=== PATIENT | female | born 1985 | race Caucasian/White ===

== ENCOUNTER 2016-10-16 11:56 | Emergency (ER) | payer OTHER ==
[~2016-10-16] VITALS: Ht 160 cm; Wt 87.1 kg
[2016-10-16 12:00] VITALS: BP 119/87
--- NOTE | 2016-10-16 13:19 | NUR ---
Patient taken from ED lobby to XRAY by tech.
--- NOTE | 2016-10-16 14:31 | NUR ---
Patient ambulated to OF to be evaluated as fast track by Dr. Anguiano. RN evaluating patient.
--- NOTE | 2016-10-16 14:50 | NUR ---
Dr. Anguiano evaluating patient in OF as fast track.
[2016-10-16 15:10] VITALS: BP 119/87
== END 2016-10-16 15:08 | disposition home or self-care (01) ==
LOC: MED 11:56
DX: S63.501A Unspecified sprain of right wrist, initial encounter (principal); J45.909 Unspecified asthma, uncomplicated; Z88.5 Allergy status to narcotic agent; Z91.040 Latex allergy status; V19.9XXA Pedal cyclist (driver) (passenger) injured in unspecified traffic accident, initial encounter; Y93.I9 Activity, other involving external motion; Y92.488 Other paved roadways as the place of occurrence of the external cause; Y99.8 Other external cause status
CPT/HCPCS: 73110; 81002; 81025; 99284

== ENCOUNTER 2017-03-02 19:00 | Emergency (ER) | payer OTHER ==
[~2017-03-02] VITALS: Ht 162.6 cm; Wt 86.2 kg
[2017-03-02 19:14] VITALS: BP 146/91
--- NOTE | 2017-03-02 22:20 | NUR ---
Patient being evaluated by Dr. Buckley in overflow chair.
--- NOTE | 2017-03-02 22:20 | NUR ---
PT TAKEN TO BED OF
--- NOTE | 2017-03-02 22:23 | NUR ---
31 Y/O F W/C/O R MID ABD PAIN AND CHILLS X TUESDAY. PT DENIES ANY N/V BUT STATES SHE HAD DIARRHEA ON TUESDAY ONLY. NO OTHER S/S OF DISTRESS NOTED. ER MADE AWARE.
[2017-03-02] MEDS ORDERED: NACL 0.9% 1,000 ML IV SCH (22:24)
[2017-03-02 22:55] LABS: ANION GAP 11.3 (8-16); CARBON DIOXIDE 28.9 mmol/L (21-32); CREATININE 0.9 mg/dL (0.6-1.3); POTASSIUM 4.2 mmol/L (3.5-5.1)
[2017-03-02] MEDS ORDERED: KETOROLAC 30 MG/ML VIAL IVP ONE (22:55)
[2017-03-02 22:57] LABS: APPEARANCE,URINE SL CLOUDY (CLEAR); BILIRUBIN,URINE NEGATIVE (NEGATIVE); BLOOD, URINE NEGATIVE (NEGATIVE); COLOR,URINE YELLOW (YELLOW); LEUKOCYTE ESTERASE ,URINE NEGATIVE (NEGATIVE); NITRITE, URINE NEGATIVE (NEGATIVE); UGLUCOSE NEGATIVE (NEGATIVE)
[2017-03-02 22:57] LABS: BASOPHILS # (AUTO) 0.4 K/uL (0.00-0.22); BASOPHILS % (AUTO) 4.3 % (0.0-2.0); EOSINOPHILS # (AUTO) 0.2 K/uL (0-0.4); EOSINOPHILS % (AUTO) 1.9 % (0.0-4.0); HEMATOCRIT 40.2 % (36-48); HEMOGLOBIN 13.4 g/dL (12.0-16.0); LYMPHOCYTES # (AUTO) 2.6 K/uL (2.5-16.5); LYMPHOCYTES % (AUTO) 25.3 % (20.5-51.1); MEAN CORPUSCULAR HEMOGLOBIN 30 pg (27-31); MEAN CORPUSCULAR HGB CONC 33 g/dL (33-37); MEAN CORPUSCULAR VOLUME 90 fL (80-94); MONOCYTES # (AUTO) 0.8 K/uL (0.8-1.0); MONOCYTES % (AUTO) 7.4 % (1.7-9.3); NEUTROPHILS # (AUTO) 6.2 K/uL (1.8-7.7); NEUTROPHILS % (AUTO) 61.1 % (42.2-75.2); PLATELET COUNT (AUTO) 260 K/uL (140-450); RED BLOOD CELL COUNT(AUTO) 4.49 MIL/uL (4.20-5.40); RED CELL DISTRIBUTION WIDTH 12.6 % (11.6-13.7); WHITE BLOOD COUNT (AUTO) 10.2 K/uL (4.8-10.8)
[2017-03-02 23:03] LABS: ALBUMIN 4.1 g/dL (3.4-5.0); TOTAL BILIRUBIN 0.2 mg/dL (0.0-1.0)
[2017-03-02 23:09] LABS: RBC,URINE 0-5 (RARE) /HPF (0-5); WBC,URINE 0-5 (RARE) /HPF (0-5)
--- NOTE | 2017-03-02 23:23 | NUR ---
Ultrasound at bedside.
[2017-03-03 00:25] VITALS: BP 141/78
--- NOTE | 2017-03-03 00:26 | NUR ---
Patient discharged with v/s stable. Written and verbal after care instructions given and explained. Patient alert, oriented and verbalized understanding of instructions. Ambulatory with to car. All questions addressed prior to discharge. ID band removed. Patient advised to follow up with PMD. Rx of pepcid 40mg, zofran 4mg given. Patient educated on indication of medication including possible reaction and side effects. Opportunity to ask questions provided and answered.
== END 2017-03-03 00:26 | disposition home or self-care (01) ==
LOC: MED 19:00
DX: R10.9 Unspecified abdominal pain (principal); J45.909 Unspecified asthma, uncomplicated; Z88.5 Allergy status to narcotic agent; Z88.8 Allergy status to other drugs, medicaments and biological substances; Z91.040 Latex allergy status
CPT/HCPCS: 36415; 76705; 76856; 80053; 81001; 81025; 83690; 84703; 85025; 96361; 96374; 99285; J1885; J7030; Q0092

== ENCOUNTER 2018-04-28 08:36 | Emergency (ER) | payer OTHER ==
[~2018-04-28] VITALS: Ht 165.1 cm; Wt 87.7 kg
[2018-04-28 08:47] VITALS: BP 106/63
--- NOTE | 2018-04-28 08:50 | NUR ---
PT AMBULATES TO BED 9
--- NOTE | 2018-04-28 08:55 | NUR ---
32 yo f bib self w/ c/o cold symptoms x 4-5 days. pt reports receiving her flu shot. reports intermittent chills, 1 episode of vomiting. using vicks, dayquil and nyquil, none today. afebrile at this time. pt w/ noted dry cough/congestion. rr even and unlabored. aaox4, gcs 15, cms intact. hx denies rx denies
--- NOTE | 2018-04-28 09:13 | NUR ---
Dr Ovalle evluating aao x4 pt at bedside
[2018-04-28] MEDS ORDERED: KETOROLAC 30 MG/ML VIAL IM ONE (09:15)
[2018-04-28 09:38] VITALS: BP 122/62
--- NOTE | 2018-04-28 09:38 | NUR ---
Patient discharged with v/s stable. Written and verbal after care instructions given and explained. Patient alert, oriented and verbalized understanding of instructions. Ambulatory with steady gait. All questions addressed prior to discharge. ID band removed. Patient advised to follow up with PMD. Rx of Motrin, Promethazine given. Patient educated on indication of medication including possible reaction and side effects. Opportunity to ask questions provided and answered.
== END 2018-04-28 09:38 | disposition home or self-care (01) ==
LOC: MED 08:36
DX: J06.9 Acute upper respiratory infection, unspecified (principal); J45.909 Unspecified asthma, uncomplicated; Z88.5 Allergy status to narcotic agent; Z91.040 Latex allergy status
CPT/HCPCS: 96372; 99283; J1885

== ENCOUNTER 2018-11-16 19:19 | Emergency (ER) | payer OTHER ==
[~2018-11-16] VITALS: Ht 162.6 cm; Wt 89.4 kg
[2018-11-16 19:40] VITALS: BP 100/47
--- NOTE | 2018-11-16 19:46 | NUR ---
PT BACK TO [facility].
--- NOTE | 2018-11-16 21:56 | NUR ---
PT AMBULATED TO ER BED 03
--- NOTE | 2018-11-16 22:26 | NUR ---
33 Y/O FEMALE C/O REDNESS, PAIN, ITCHING, AND CLEAR D/C TO RT RIGHT LOWER LEG S/P BUG BITE. BLISTERS NOTED ON LEGS BILATERALLY AND NON PITTING EDEMA NOTED ON ANKLES BILATERALLY. SKIN ON LEGS ARE WARM TO TOUCH. SIDERAILS X2. ERMD TO SEE PATIENT. PMH: DENIES ALLERGIES: HYDROCODONE, LATEX, AND MORPHINE
[2018-11-16] MEDS ORDERED: KETOROLAC 60 MG/2 ML VIAL IM ONE (23:20)
[2018-11-17 00:28] VITALS: BP 110/58
--- NOTE | 2018-11-17 00:28 | NUR ---
Patient discharged with v/s stable. Written and verbal after care instructions given and explained. Patient alert, oriented and verbalized understanding of instructions. Ambulatory with steady gait. All questions addressed prior to discharge. ID band removed. Patient advised to follow up with PMD. Rx of KEFLEX 500MG, PREDNISONE 20MG AND MOTRIN 800MG given. Patient educated on indication of medication including possible reaction and side effects. Opportunity to ask questions provided and answered.
== END 2018-11-17 00:28 | disposition home or self-care (01) ==
LOC: MED 19:19
DX: L03.116 Cellulitis of left lower limb (principal); L03.115 Cellulitis of right lower limb; J45.909 Unspecified asthma, uncomplicated; Z98.890 Other specified postprocedural states; Z88.5 Allergy status to narcotic agent; Z91.040 Latex allergy status
CPT/HCPCS: 96372; 99283; J1885

== ENCOUNTER 2018-12-01 07:47 | Emergency (ER) | payer OTHER ==
[~2018-12-01] VITALS: Ht 162.6 cm; Wt 90.0 kg
[2018-12-01 07:51] VITALS: BP 130/81
--- NOTE | 2018-12-01 07:58 | NUR ---
PATIENT AMBULATED TO BED 7 AT THIS TIME.
--- NOTE | 2018-12-01 08:08 | NUR ---
PT BIB SLEF WITH C/O BUG BITE X1 DAY. PT FIRST NOTICED BITE YESTERDAY AT 08:00 TO LATERAL RT KNEE, REPORTS KNEE WAS SWOLLEN. + ERYTHEMA , WARM AND TENDERNESS AT THIS TIME. 10/10 ITCHY PAIN AROUND ENTIRE RT KNEE. PT SEEN HERE ON 11/18, TX WITH CEPHALEXIN AND PREDNISONE FOR BITE ON LT LEG . PAIN INCREASES WITH WALKING. ER MD AT THE [facility] ASSESSING THE PT. WILL CONTINUE TO MONITOR PT. MEDHX:DENIES RX:CEPHALEXIN
[2018-12-01] MEDS ORDERED: SULFAMETH/TRIMETH DS 800/160MG 1 TAB PO ONE (08:15)
[2018-12-01 08:28] VITALS: BP 130/81
--- NOTE | 2018-12-01 08:28 | NUR ---
Patient discharged with v/s stable. Written and verbal after care instructions given and explained. Patient alert, oriented and verbalized understanding of instructions. Ambulatory with steady gait. All questions addressed prior to discharge. ID band removed. Patient advised to follow up with PMD. Rx of motrin 800 and mactrim ds 800mg-160 mg given. Patient educated on indication of medication including possible reaction and side effects. Opportunity to ask questions provided and answered.
== END 2018-12-01 08:28 | disposition home or self-care (01) ==
LOC: MED 07:47
DX: S70.362A Insect bite (nonvenomous), left thigh, initial encounter (principal); L03.116 Cellulitis of left lower limb; R03.0 Elevated blood-pressure reading, without diagnosis of hypertension; J45.909 Unspecified asthma, uncomplicated; Z88.5 Allergy status to narcotic agent; Z91.040 Latex allergy status; Z88.6 Allergy status to analgesic agent; W57.XXXA Bitten or stung by nonvenomous insect and other nonvenomous arthropods, initial encounter; Y93.89 Activity, other specified; Y92.89 Other specified places as the place of occurrence of the external cause; Y99.8 Other external cause status
CPT/HCPCS: 96372; 99283

== ENCOUNTER 2019-01-22 08:05 | Emergency (ER) | payer OTHER ==
[~2019-01-22] VITALS: Ht 162.6 cm; Wt 80.7 kg
[2019-01-22 08:08] VITALS: BP 121/71
--- NOTE | 2019-01-22 08:20 | NUR ---
PT AMBULATED TO BED 11 AT THIS TIME.
--- NOTE | 2019-01-22 08:22 | NUR ---
PT AMBULATING TO RESTROOM AT THIS TIME TO PROVIDE URINE SAMPLE
--- NOTE | 2019-01-22 08:27 | NUR ---
Dr. Batres evaluating patient at bedside.
--- NOTE | 2019-01-22 08:33 | NUR ---
33/F BIBS CAME IN COMPLAINING OF ABDOMINAL PAIN X3 DAYS, CHANGE IN APPETITTE, AND SOB. BS X4 ACTIVE, NON TENDER ABDOMEN UPON PALPATION. REPORTS NO NAUSEA, -VOMITING, - COUGHING, - WHEEZING, - DIARRHEA, -CONSTIPATION, - ANXIOUSNESS, - NERVOUSSNESS. PATIENT STATES "CAN EAT A LITTLE BUT NOT MUCH AT ALL". STATES PAIN IN LLQ COMES AND GOES. PMHX: ASTHMA RX: DENIES
[2019-01-22 08:52] LABS: BASOPHILS % (AUTO) 0.4 % (0.0-2.0); EOSINOPHILS # (AUTO) 0.1 K/uL (0-0.4); EOSINOPHILS % (AUTO) 0.8 % (0.0-4.0); HEMATOCRIT 38.1 % (36-48); HEMOGLOBIN 12.6 g/dL (12.0-16.0); LYMPHOCYTES # (AUTO) 1.6 K/uL (2.5-16.5); LYMPHOCYTES % (AUTO) 19.5 % (20.5-51.1); MEAN CORPUSCULAR HEMOGLOBIN 30 pg (27-31); MEAN CORPUSCULAR HGB CONC 33 g/dL (33-37); MEAN CORPUSCULAR VOLUME 90.8 fL (80-94); MONOCYTES # (AUTO) 0.7 K/uL (0.8-1.0); MONOCYTES % (AUTO) 7.9 % (1.7-9.3); NEUTROPHILS % (AUTO) 71.4 % (42.2-75.2); PLATELET COUNT (AUTO) 263 K/uL (140-450); RED CELL DISTRIBUTION WIDTH 13.2 % (11.6-13.7); WHITE BLOOD COUNT (AUTO) 8.4 K/uL (4.8-10.8)
[2019-01-22 08:55] LABS: APPEARANCE,URINE CLEAR (CLEAR); BILIRUBIN,URINE NEGATIVE (NEGATIVE); BLOOD, URINE NEGATIVE (NEGATIVE); COLOR,URINE YELLOW (YELLOW); LEUKOCYTE ESTERASE ,URINE NEGATIVE (NEGATIVE); NITRITE, URINE NEGATIVE (NEGATIVE); UGLUCOSE NEGATIVE (NEGATIVE)
--- NOTE | 2019-01-22 08:55 | NUR ---
ULTRASOUND AT BEDSIDE
[2019-01-22] MEDS ORDERED: ONDANSETRON 4 MG ODT PO ONE (09:55)
--- NOTE | 2019-01-22 10:29 | NUR ---
Patient discharged with v/s stable. Written and verbal after care instructions given and explained. Patient alert, oriented and verbalized understanding of instructions. Ambulatory with steady gait. All questions addressed prior to discharge. ID band removed. Patient advised to follow up with PMD. Rx of DICLEGIS given. Patient educated on indication of medication including possible reaction and side effects. Opportunity to ask questions provided and answered.
[2019-01-22 10:30] VITALS: BP 120/84
== END 2019-01-22 10:29 | disposition home or self-care (01) ==
LOC: MED 08:05
DX: O26.891 Other specified pregnancy related conditions, first trimester (principal); R10.32 Left lower quadrant pain; O99.511 Diseases of the respiratory system complicating pregnancy, first trimester; J45.909 Unspecified asthma, uncomplicated; Z3A.08 8 weeks gestation of pregnancy; Z88.5 Allergy status to narcotic agent; Z91.040 Latex allergy status; Z98.890 Other specified postprocedural states
CPT/HCPCS: 36415; 76801; 81003; 81025; 84702; 85025; 99284; Q0092; Q0162

== ENCOUNTER 2019-06-10 10:05 | Emergency (ER) | payer OTHER ==
[~2019-06-10] VITALS: Ht 162.6 cm; Wt 87.1 kg
[2019-06-10 10:09] VITALS: BP 114/67
[2019-06-10 11:46] VITALS: BP 114/67
== END 2019-06-10 11:46 | disposition home or self-care (01) ==
LOC: MED 10:05
DX: J06.9 Acute upper respiratory infection, unspecified (principal); Z91.040 Latex allergy status; Z88.5 Allergy status to narcotic agent
CPT/HCPCS: 81025; 99283

== ENCOUNTER 2019-06-28 07:15 | Observation (INO) | payer OTHER ==
[~2019-06-28] VITALS: Ht 162.6 cm; Wt 86.6 kg
--- NOTE | 2019-06-28 08:44 | NUR ---
PATIENT HAS BEEN SCREENED AND CATEGORIZED LOW NUTRITION RISK. PATIENT WILL BE SEEN WITHIN 7 DAYS OF ADMISSION. 07/04/[address]
[2019-06-28] MEDS: BETAMETH ACET/BETAMETH NA PH 30 MG/5 ML VIAL IM SCH (08:54)
[2019-06-28] MEDS: LACTATED RINGERS 1,000 ML IV SCH (08:55)
[2019-06-28 09:10] VITALS: BP 137/62
[2019-06-28] MEDS ORDERED: fentaNYL 0.05 MG/ML VIAL IVP SCH ×2 (09:10→17:00)
[2019-06-28 09:29] LABS: APPEARANCE,URINE CLEAR (CLEAR); BILIRUBIN,URINE NEGATIVE (NEGATIVE); BLOOD, URINE NEGATIVE (NEGATIVE); COLOR,URINE YELLOW (YELLOW); LEUKOCYTE ESTERASE ,URINE NEGATIVE (NEGATIVE); NITRITE, URINE NEGATIVE (NEGATIVE); UGLUCOSE 1+ (NEGATIVE)
[2019-06-28 09:41] LABS: BASOPHILS % (AUTO) 0.2 % (0.0-2.0); EOSINOPHILS # (AUTO) 0.1 K/uL (0-0.4); EOSINOPHILS % (AUTO) 0.9 % (0.0-4.0); HEMATOCRIT 36.9 % (36-48); HEMOGLOBIN 12.1 g/dL (12.0-16.0); LYMPHOCYTES # (AUTO) 1.3 K/uL (2.5-16.5); LYMPHOCYTES % (AUTO) 13.4 % (20.5-51.1); MEAN CORPUSCULAR HEMOGLOBIN 31 pg (27-31); MEAN CORPUSCULAR HGB CONC 33 g/dL (33-37); MEAN CORPUSCULAR VOLUME 93.3 fL (80-94); MONOCYTES # (AUTO) 0.9 K/uL (0.8-1.0); MONOCYTES % (AUTO) 8.9 % (1.7-9.3); NEUTROPHILS # (AUTO) 7.5 K/uL (1.8-7.7); NEUTROPHILS % (AUTO) 76.6 % (42.2-75.2); PLATELET COUNT (AUTO) 233 K/uL (140-450); RED BLOOD CELL COUNT(AUTO) 3.96 MIL/uL (4.20-5.40); RED CELL DISTRIBUTION WIDTH 13.8 % (11.6-13.7); WHITE BLOOD COUNT (AUTO) 9.8 K/uL (4.8-10.8)
[2019-06-28] MEDS: ONDANSETRON 8 MG in NACL 0.9% 50 ML IVP PRN (11:08)
[2019-06-28 12:33] LABS: ALBUMIN 2.9 g/dL (3.4-5.0); ANION GAP 18.2 (8-16); CARBON DIOXIDE 23.7 mmol/L (21-32); CREATININE 0.7 mg/dL (0.6-1.3); POTASSIUM 4.9 mmol/L (3.5-5.1); TOTAL BILIRUBIN 0.2 mg/dL (0.0-1.0)
[2019-06-28] MEDS ORDERED: INFLUENZA VACCINE QUAD 0.5 ML SYR IMVAC PRN (15:15)
[2019-06-28] MEDS ORDERED: PROMETHAZINE 25 MG/ML VIAL IM PRN (16:50)
[2019-06-28] MEDS ORDERED: MAG SULF 2000 MG/WATER PREMIX 100 ML IV SCH (17:00)
[2019-06-28] MEDS: MAG SULF 20 GM/H2O PREMIX DRIP 500 ML IV SCH (18:22)
[2019-06-29] MEDS: MAG SULF 20 GM/H2O PREMIX DRIP 500 ML IV SCH ×2 (04:07→14:00)
[2019-06-29] MEDS: LACTATED RINGERS 1,000 ML IV SCH (04:08)
[2019-06-29] MEDS: ONDANSETRON 8 MG in NACL 0.9% 50 ML IVP PRN ×2 (06:34→13:56)
[2019-06-29] MEDS: BETAMETH ACET/BETAMETH NA PH 30 MG/5 ML VIAL IM SCH (09:31)
[2019-06-29] MEDS ORDERED: ONDANSETRON 8 MG in NACL 0.9% 50 ML IV ONE (13:00)
[2019-06-29] MEDS ORDERED: ONDANSETRON 8 MG in NACL 0.9% 50 ML IVP PRN (14:15)
== END 2019-06-29 20:48 | disposition home or self-care (01) ==
LOC: MFCC 07:15
PROVIDERS: ADMIT Obstetrics & Gynecology; ATTEND Obstetrics & Gynecology
DX: O60.03 Preterm labor without delivery, third trimester (principal); O21.2 Late vomiting of pregnancy; Z3A.29 29 weeks gestation of pregnancy
CPT/HCPCS: 36415; 76817; 80053; 81003; 82731; 83735; 85025; 86886; 86900; 86901; 96361; 96365; 96366; 96372; 96375; 96376; G0378; J0702; J2405; J3010; J3475; J7120; Q0092; J2550

== ENCOUNTER 2021-07-04 15:37 | Emergency (ER) | payer OTHER ==
[~2021-07-04] VITALS: Ht 162.6 cm; Wt 92.1 kg
[~2021-07-04 15:37] MED LIST: PREN-380 PO
[2021-07-04 15:46] VITALS: BP 118/69
--- NOTE | 2021-07-04 16:00 | NUR ---
35 Y/O FEMALE BIB SELF C/O TOOTHACHE 10/28 ACHING X1DAY. PT WAS REFERRED BY DENTIST TO ER. PT IS 34WEEKS , LMP 09/22/20. DENIES N/V/D, DENIES FEVER/CHILLS. DENIES PMH ALLERGIES: NORCO, LATEX, MORPHINE
--- NOTE | 2021-07-04 16:17 | NUR ---
DR ARAUJO AT BEDSIDE.
--- NOTE | 2021-07-04 16:30 | NUR ---
Sailaja lopes in [facility] - 07/04/[email or web address] ARAUJO AT [facility].
[2021-07-04] MEDS ORDERED: AMOXICILLIN 500 MG CAP PO ONE (17:00)
[2021-07-04] MEDS ORDERED: AMOX500C25 PO (17:03)
[2021-07-04 17:19] VITALS: BP 128/80
--- NOTE | 2021-07-04 17:21 | NUR ---
Patient discharged with v/s stable. Written and verbal after care instructions given and explained to parent/guardian. Parent/Guardian verbalized understanding. Ambulatorysteady gait. All questions addressed prior to discharge. Advised to follow up with PMD.
== END 2021-07-04 17:19 | disposition home or self-care (01) ==
LOC: MED 15:37
DX: O26.893 Other specified pregnancy related conditions, third trimester (principal); K04.7 Periapical abscess without sinus; Z79.2 Long term (current) use of antibiotics; Z79.899 Other long term (current) drug therapy; Z88.5 Allergy status to narcotic agent; Z91.040 Latex allergy status
CPT/HCPCS: 99283

== ENCOUNTER 2021-07-06 10:02 | Observation (INO) | payer OTHER ==
[~2021-07-06] VITALS: Ht 162.6 cm; Wt 92.1 kg
[~2021-07-06 10:02] MED LIST changes: +AMOX500C25 PO
[2021-07-06 10:24] VITALS: BP 123/69
[2021-07-06] MEDS ORDERED: LACTATED RINGERS 1,000 ML IV SCH (10:45)
[2021-07-06] MEDS ORDERED: ACET-10509 PO (11:03)
[2021-07-06] MEDS ORDERED: AMOX500C25 PO (11:03)
[2021-07-06] MEDS ORDERED: PRETAB PO (11:03)
[2021-07-06] MEDS ORDERED: ACETAMINOPHEN 325 MG TAB PO PRN (11:25)
[2021-07-06] MEDS ORDERED: ACETAMINOPHEN 325 MG TAB ONE (11:30)
[2021-07-06 11:47] LABS: BASOPHILS % (AUTO) 0.4 % (0.0-2.0); EOSINOPHILS % (AUTO) 0.3 % (0.0-4.0); HEMATOCRIT 34.8 % (36-48); HEMOGLOBIN 11.6 g/dL (12.0-16.0); LYMPHOCYTES # (AUTO) 1.2 K/uL (2.5-16.5); LYMPHOCYTES % (AUTO) 11.7 % (20.5-51.1); MEAN CORPUSCULAR HEMOGLOBIN 30 pg (27-31); MEAN CORPUSCULAR HGB CONC 33 g/dL (33-37); MONOCYTES % (AUTO) 9.1 % (1.7-9.3); NEUTROPHILS # (AUTO) 8.3 K/uL (1.8-7.7); NEUTROPHILS % (AUTO) 78.5 % (42.2-75.2); PLATELET COUNT (AUTO) 213 K/uL (140-450); RED BLOOD CELL COUNT(AUTO) 3.87 MIL/uL (4.20-5.40); RED CELL DISTRIBUTION WIDTH 14.5 % (11.6-13.7); WHITE BLOOD COUNT (AUTO) 10.6 K/uL (4.8-10.8)
[2021-07-06 11:57] LABS: APPEARANCE,URINE CLEAR (CLEAR); BILIRUBIN,URINE 1+ (NEGATIVE); BLOOD, URINE TRACE-I (NEGATIVE); COLOR,URINE YELLOW (YELLOW); LEUKOCYTE ESTERASE ,URINE NEGATIVE (NEGATIVE); NITRITE, URINE NEGATIVE (NEGATIVE); UGLUCOSE NEGATIVE (NEGATIVE)
[2021-07-06 12:14] LABS: ALBUMIN 2.9 g/dL (3.4-5.0); ANION GAP 13.7 (8-16); CARBON DIOXIDE 25.7 mmol/L (21-32); CREATININE 0.7 mg/dL (0.6-1.3); POTASSIUM 4.4 mmol/L (3.5-5.1); TOTAL BILIRUBIN 0.4 mg/dL (0.0-1.0)
[2021-07-06 12:46] LABS: RBC,URINE 0-5 /HPF (0-5); WBC,URINE 0-5 /HPF (0-5)
[2021-07-06 12:47] LABS: CALCIUM OXALATE CRYSTALS,UR 0-10 /HPF (None Seen); TRICHOMONAS,URINE None Seen /HPF (None Seen); YEAST,URINE None Seen /HPF (None Seen)
[2021-07-06 12:48] LABS: COARSE GRANULAR CASTS,URINE None Seen /LPF (None Seen); FINE GRANULAR CASTS,URINE None Seen /LPF (None Seen); HYALINE CASTS, URINE None Seen /LPF (None Seen); OTHER CASTS, URINE None Seen /LPF (None Seen); OTHER CRYSTALS,URINE None Seen /HPF (None Seen); RED BLOOD CELL CASTS,URINE None Seen /LPF (None Seen); TRIPLE PHOSPHATE CRYSTAL,UR None Seen /HPF (None Seen); URIC ACID CRYSTALS,URINE None Seen /HPF (None Seen); URINE AMORPHOUS URATE None Seen /HPF (None Seen); WAXY CASTS,URINE None Seen /LPF (None Seen)
== END 2021-07-06 15:30 | disposition home or self-care (01) ==
LOC: MLD 10:02
PROVIDERS: ADMIT Obstetrics & Gynecology; ATTEND Obstetrics & Gynecology
DX: O99.613 Diseases of the digestive system complicating pregnancy, third trimester (principal); Z20.822 Contact with and (suspected) exposure to COVID-19; K08.89 Other specified disorders of teeth and supporting structures; Z3A.35 35 weeks gestation of pregnancy
CPT/HCPCS: 36415; 76819; 80053; 81001; 85025; 87426; 96360; 96361; G0378; G0379; Q0092; 59025

== ENCOUNTER 2021-07-17 22:05 | Inpatient (IN) | payer OTHER ==
[~2021-07-17] VITALS: Ht 162.6 cm; Wt 92.1 kg
[~2021-07-17 22:05] MED LIST changes: +ACET-10509 PO; -PREN-380 PO; +PRETAB PO
[2021-07-17 23:40] LABS: BASOPHILS # (AUTO) 0.1 K/uL (0.00-0.22); BASOPHILS % (AUTO) 0.6 % (0.0-2.0); EOSINOPHILS # (AUTO) 0.1 K/uL (0-0.4); EOSINOPHILS % (AUTO) 0.7 % (0.0-4.0); HEMATOCRIT 32.4 % (36-48); HEMOGLOBIN 10.8 g/dL (12.0-16.0); LYMPHOCYTES # (AUTO) 1.8 K/uL (2.5-16.5); LYMPHOCYTES % (AUTO) 18.2 % (20.5-51.1); MEAN CORPUSCULAR HEMOGLOBIN 30 pg (27-31); MEAN CORPUSCULAR HGB CONC 33 g/dL (33-37); MEAN CORPUSCULAR VOLUME 89.6 fL (80-94); NEUTROPHILS # (AUTO) 7.1 K/uL (1.8-7.7); NEUTROPHILS % (AUTO) 70.5 % (42.2-75.2); PLATELET COUNT (AUTO) 238 K/uL (140-450); RED BLOOD CELL COUNT(AUTO) 3.62 MIL/uL (4.20-5.40); RED CELL DISTRIBUTION WIDTH 14.3 % (11.6-13.7); WHITE BLOOD COUNT (AUTO) 10.1 K/uL (4.8-10.8)
[2021-07-18 00:21] LABS: ALBUMIN 2.6 g/dL (3.4-5.0); ANION GAP 12.8 (8-16); CARBON DIOXIDE 25.1 mmol/L (21-32); CREATININE 0.7 mg/dL (0.6-1.3); POTASSIUM 3.9 mmol/L (3.5-5.1); TOTAL BILIRUBIN 0.2 mg/dL (0.0-1.0)
[2021-07-18 00:28] LABS: PROTHROMBIN TIME 8.8 secs (10.8-13.4)
[2021-07-18] MEDS: LACTATED RINGERS 1,000 ML IV SCH ×3 (00:48→07:33)
[2021-07-18 01:55] LABS: APPEARANCE,URINE CLEAR (CLEAR); BILIRUBIN,URINE NEGATIVE (NEGATIVE); BLOOD, URINE NEGATIVE (NEGATIVE); COLOR,URINE YELLOW (YELLOW); LEUKOCYTE ESTERASE ,URINE NEGATIVE (NEGATIVE); NITRITE, URINE NEGATIVE (NEGATIVE); PH,URINE 6.5 (5.0-9.0); UGLUCOSE NEGATIVE (NEGATIVE)
[2021-07-18 02:39] LABS: RBC,URINE 0-5 /HPF (0-5); WBC,URINE 0-5 /HPF (0-5)
[2021-07-18 02:40] LABS: CALCIUM OXALATE CRYSTALS,UR 0-5 /HPF (None Seen); URINE AMORPHOUS URATE 1+ /HPF (None Seen)
[2021-07-18] MEDS ORDERED: ceFAZolin 1,000 MG VIAL ONE (06:12)
--- NOTE | 2021-07-18 06:56 | NUR ---
PATIENT HAS BEEN SCREENED AND CATEGORIZED LOW NUTRITION RISK. PATIENT WILL BE SEEN WITHIN 7 DAYS OF ADMISSION. 07/25/21 JESÚS ARMENDARIZ MS, RDN
[2021-07-18] MEDS ORDERED: LACTATED RINGERS 1,000 ML IV SCH (07:50)
[2021-07-18] MEDS ORDERED: MEPERIDINE 25 MG/ML SYR IVP PRN (07:50)
[2021-07-18] MEDS ORDERED: diphenhydrAMINE 50 MG/ML VIAL IVP PRN (07:50)
[2021-07-18] MEDS ORDERED: IBUPROFEN 600 MG TAB PO PRN (07:50)
[2021-07-18] MEDS ORDERED: ONDANSETRON 4 MG/2 ML VIAL IVP PRN ×2 (07:50→08:40)
[2021-07-18] MEDS ORDERED: hydrALAZINE 20 MG/ML VIAL IVP PRN (08:00)
[2021-07-18] MEDS ORDERED: LABETALOL 20 MG/4 ML VIAL IVP PRN (08:00)
[2021-07-18] MEDS ORDERED: bisacodyL 5 MG TABEC PO PRN (08:35)
[2021-07-18] MEDS ORDERED: oxyCODONE/APAP 5/325 MG 1 TAB TAB PO PRN ×3 (08:35→08:40)
[2021-07-18] MEDS ORDERED: METHYLERGONOVINE 0.2 MG/ML AMP IM PRN (08:35)
[2021-07-18] MEDS ORDERED: MEASLES, MUMPS, AND RUBELLA 1 VIAL SQVAC ONE (08:35)
[2021-07-18] MEDS ORDERED: METOCLOPRAMIDE 10 MG/2 ML INJ VIAL IVP PRN (08:40)
[2021-07-18] MEDS ORDERED: PROMETHAZINE 25 MG/ML VIAL IVP PRN (08:40)
[2021-07-18] MEDS: OXYTOCIN 20 UNITS/LR PREMIX 1,000 ML IV ONE ×2 (08:45→08:50)
[2021-07-18] MEDS: KETOROLAC 30 MG/ML VIAL IVP PRN ×3 (09:44→21:42)
[2021-07-18] MEDS ORDERED: OXYTOCIN 20 UNITS in LACTATED RINGERS 1,000 ML IV SCH ×2 (11:20→11:50)
[2021-07-18] MEDS: IBUPROFEN 600 MG TAB PO SCH ×2 (12:00→18:00)
[2021-07-18] MEDS: OXYTOCIN 20 UNITS in LACTATED RINGERS 1,000 ML IV SCH ×2 (12:13→18:39)
[2021-07-18] MEDS ORDERED: OXYTOCIN 20 UNITS/LR PREMIX 1,000 ML IV ONE (18:37)
[2021-07-18] MEDS: SIMETHICONE 80 MG TAB.CHEW PO PRN (20:17)
[2021-07-19] MEDS: IBUPROFEN 600 MG TAB PO SCH ×4 (00:05→23:54)
[2021-07-19] MEDS ORDERED: OXYTOCIN 20 UNITS/LR PREMIX 1,000 ML IV ONE (02:22)
[2021-07-19] MEDS: OXYTOCIN 20 UNITS in LACTATED RINGERS 1,000 ML IV SCH (02:36)
[2021-07-19] MEDS: KETOROLAC 30 MG/ML VIAL IVP PRN (03:47)
[2021-07-19] MEDS: SIMETHICONE 80 MG TAB.CHEW PO PRN ×4 (04:21→17:55)
[2021-07-19 06:38] LABS: BASOPHILS % (AUTO) 0.1 % (0.0-2.0); EOSINOPHILS % (AUTO) 0.1 % (0.0-4.0); HEMATOCRIT 26.5 % (36-48); HEMOGLOBIN 8.8 g/dL (12.0-16.0); LYMPHOCYTES # (AUTO) 1.7 K/uL (2.5-16.5); LYMPHOCYTES % (AUTO) 10.4 % (20.5-51.1); MEAN CORPUSCULAR HEMOGLOBIN 30 pg (27-31); MEAN CORPUSCULAR HGB CONC 33 g/dL (33-37); MEAN CORPUSCULAR VOLUME 89.4 fL (80-94); MONOCYTES # (AUTO) 1.2 K/uL (0.8-1.0); MONOCYTES % (AUTO) 7.4 % (1.7-9.3); NEUTROPHILS # (AUTO) 13.4 K/uL (1.8-7.7); PLATELET COUNT (AUTO) 209 K/uL (140-450); RED BLOOD CELL COUNT(AUTO) 2.97 MIL/uL (4.20-5.40); RED CELL DISTRIBUTION WIDTH 14.3 % (11.6-13.7)
[2021-07-19 07:33] LABS: WHITE BLOOD COUNT (AUTO) 16.3 K/uL (4.8-10.8)
[2021-07-20] MEDS: IBUPROFEN 600 MG TAB PO SCH ×2 (05:44→11:53)
[2021-07-20] MEDS: SIMETHICONE 80 MG TAB.CHEW PO PRN (05:47)
== END 2021-07-20 13:40 | disposition home or self-care (01) | DRG 539 ==
LOC: MFCC 22:05
PROVIDERS: ADMIT Obstetrics & Gynecology; ATTEND Obstetrics & Gynecology
PROC: 0UB70ZZ Excision of Bilateral Fallopian Tubes, Open Approach (ICD-10-PCS; 2021-07-18)
PROC: 10D00Z1 Extraction of Products of Conception, Low, Open Approach (ICD-10-PCS; principal; 2021-07-18 06:30)
DX: O34.211 Maternal care for low transverse scar from previous cesarean delivery (principal); O60.23X0 Term delivery with preterm labor, third trimester, not applicable or unspecified; D62 Acute posthemorrhagic anemia; O13.4 Gestational [pregnancy-induced] hypertension without significant proteinuria, complicating childbirth; O99.214 Obesity complicating childbirth; Z20.822 Contact with and (suspected) exposure to COVID-19; Z3A.37 37 weeks gestation of pregnancy; Z37.0 Single live birth; O24.429 Gestational diabetes mellitus in childbirth, unspecified control; G89.18 Other acute postprocedural pain; R10.9 Unspecified abdominal pain
CPT/HCPCS: 36415; 59200; 80053; 81001; 85025; 85610; 85730; 86592; 86886; 86900; 86901; 87086; 88302; J0690; J1885; J2175; J2590; J7120

== ENCOUNTER 2021-08-16 21:22 | Emergency (ER) | payer OTHER ==
[~2021-08-16] VITALS: Ht 162.6 cm; Wt 88.0 kg
[2021-08-16 21:25] VITALS: BP 178/75
--- NOTE | 2021-08-16 21:26 | NUR ---
SEEN AND EXAMINED BY BUCK ABBASI IN TRIAGE
[2021-08-16] MEDS ORDERED: FAMO-92 PO (21:28)
--- NOTE | 2021-08-16 21:31 | NUR ---
SEEN BY BUCK NO NURSING INTERVENTIONS NEEDED FOR PATIENT. DISCHARGED BY BUCK ABBASI IN TRIAGE.
== END 2021-08-16 21:31 | disposition home or self-care (01) ==
LOC: MED 21:22
DX: K21.9 Gastro-esophageal reflux disease without esophagitis (principal); Z79.899 Other long term (current) drug therapy; Z88.5 Allergy status to narcotic agent; Z91.040 Latex allergy status
CPT/HCPCS: 99282

== ENCOUNTER 2022-10-27 17:04 | Emergency (ER) | payer OTHER ==
[~2022-10-27] VITALS: Ht 162.6 cm; Wt 90.3 kg
[~2022-10-27 17:04] MED LIST changes: -ACET-10509 PO; -AMOX500C25 PO; +FAMO-92 PO; -PRETAB PO
[2022-10-27 17:17] VITALS: BP 132/70; PULSE 88; RESP 20; TEMP 97.2; O2SAT 96
[2022-10-27] MEDS ORDERED: NAPR-1704 PO (18:40)
[2022-10-27] MEDS ORDERED: CAPS1ADH5 TP (18:40)
[2022-10-27 20:21] LABS: APPEARANCE,URINE CLEAR (CLEAR); BILIRUBIN,URINE NEGATIVE (NEGATIVE); BLOOD, URINE NEGATIVE (NEGATIVE); COLOR,URINE YELLOW (YELLOW); LEUKOCYTE ESTERASE ,URINE NEGATIVE (NEGATIVE); NITRITE, URINE NEGATIVE (NEGATIVE); PROTEIN,URINE NEGATIVE (NEGATIVE); UGLUCOSE NEGATIVE (NEGATIVE); UROBILINOGEN,URINE 0.2 EU/dL (0.2 - 1)
== END 2022-10-27 18:48 | disposition home or self-care (01) ==
LOC: MED 17:04
DX: S29.012A Strain of muscle and tendon of back wall of thorax, initial encounter (principal); E03.9 Hypothyroidism, unspecified; Z88.5 Allergy status to narcotic agent; Z88.8 Allergy status to other drugs, medicaments and biological substances; Z79.899 Other long term (current) drug therapy; X58.XXXA Exposure to other specified factors, initial encounter; Y93.89 Activity, other specified; Y92.89 Other specified places as the place of occurrence of the external cause; Y99.8 Other external cause status
CPT/HCPCS: 81003; 81025; 99283

== ENCOUNTER 2022-11-16 05:13 | Day surgery (SDC) | payer OTHER ==
[~2022-11-16] VITALS: Ht 162.6 cm; Wt 90.3 kg
[~2022-11-16 05:13] MED LIST changes: +CAPS1ADH5 TP; +NAPR-1704 PO
[2022-11-16] MEDS ORDERED: ROCURONIUM 50 MG/5 ML VIAL IV ONE ×2 (07:00→07:57)
[2022-11-16] MEDS ORDERED: SUGAMMADEX SODIUM 200 MG/2 ML VIAL IV ONE ×2 (07:00→09:00)
[2022-11-16] MEDS ORDERED: DEFEROXAMINE 500 MG VIAL ONE (07:00)
[2022-11-16] MEDS ORDERED: PROPOFOL 200 MG/20 ML VIAL IV ONE ×2 (07:00→07:40)
[2022-11-16] MEDS ORDERED: fentaNYL citrate 0.05 MG/ML - 50mL vial IV ONE (07:00)
[2022-11-16] MEDS ORDERED: PHENYTOIN 100 MG/2 ML VIAL IVP ONE (07:00)
[2022-11-16] MEDS ORDERED: KETOROLAC 30 MG/ML VIAL ONE ×2 (07:00→09:00)
[2022-11-16] MEDS ORDERED: ONDANSETRON 4 MG/2 ML VIAL ONE ×2 (07:00→07:54)
[2022-11-16] MEDS ORDERED: DEXAMETHASONE 4 MG/ML VIAL ONE ×2 (07:00→07:54)
[2022-11-16] MEDS ORDERED: SUCCINYLCHOLINE CHLORIDE 200 MG/10 ML VIAL IVP ONE ×2 (07:00→07:40)
[2022-11-16] MEDS ORDERED: METOCLOPRAMIDE 10 MG/2 ML INJ VIAL ONE ×2 (07:00→07:54)
[2022-11-16] MEDS ORDERED: BUPIVACAINE-MPF 0.25% 30 ML VIAL INJ ONE (07:18)
[2022-11-16] MEDS ORDERED: LIDOCAINE 1% 500 MG/50 ML VIAL ONE (07:19)
[2022-11-16 07:26] LABS: BASOPHILS # (AUTO) 0.1 K/uL (0.00-0.22); BASOPHILS % (AUTO) 0.8 % (0.0-2.0); EOSINOPHILS # (AUTO) 0.2 K/uL (0-0.4); EOSINOPHILS % (AUTO) 2.6 % (0.0-4.0); HEMATOCRIT 36.5 % (36-48); HEMOGLOBIN 12.1 g/dL (12.0-16.0); LYMPHOCYTES # (AUTO) 1.8 K/uL (2.5-16.5); LYMPHOCYTES % (AUTO) 25.7 % (20.5-51.1); MEAN CORPUSCULAR HEMOGLOBIN 29 pg (27-31); MEAN CORPUSCULAR HGB CONC 33 g/dL (33-37); MEAN CORPUSCULAR VOLUME 88.5 fL (80-94); MONOCYTES # (AUTO) 0.8 K/uL (0.8-1.0); MONOCYTES % (AUTO) 11.2 % (1.7-9.3); NEUTROPHILS # (AUTO) 4.2 K/uL (1.8-7.7); NEUTROPHILS % (AUTO) 59.7 % (42.2-75.2); PLATELET COUNT (AUTO) 263 K/uL (140-450); RED BLOOD CELL COUNT(AUTO) 4.13 MIL/uL (4.20-5.40); RED CELL DISTRIBUTION WIDTH 13.3 % (11.6-13.7)
[2022-11-16 07:47] LABS: ALBUMIN 3.5 g/dL (3.4-5.0); ANION GAP 10.4 (8-16); CARBON DIOXIDE 26.5 mmol/L (21-32); CREATININE 0.9 mg/dL (0.6-1.3); POTASSIUM 3.9 mmol/L (3.5-5.1); TOTAL BILIRUBIN 0.3 mg/dL (0.0-1.0); TOTAL PROTEIN, SERUM 6.9 g/dL (6.4-8.2)
[2022-11-16 07:53] LABS: INR 0.85 (0.8-1.2)
[2022-11-16] MEDS ORDERED: fentaNYL citrate 0.05 MG/ML VIAL ONE (07:54)
[2022-11-16] MEDS ORDERED: HYDROmorphone PFS 2 MG/ML SYR ONE (08:20)
[2022-11-16] MEDS ORDERED: ONDANSETRON 4 MG/2 ML VIAL IVP PRN (09:10)
[2022-11-16] MEDS ORDERED: HYDROmorphone 1 MG/ML AMP IVP PRN (09:10)
[2022-11-16 17:31] VITALS: BP 121/83; PULSE 80; RESP 18; TEMP 96.9; O2SAT 98
[2022-11-16 17:33] VITALS: PULSE 80; RESP 18; O2SAT 98
[2022-11-16 20:00] VITALS: BP 128/54; PULSE 71; RESP 20; TEMP 98.1; O2SAT 99
[2022-11-16] MEDS ORDERED: KETOROLAC 30 MG/ML VIAL IVP ONE (22:35)
[2022-11-16] MEDS: ONDANSETRON 4 MG/2 ML VIAL IVP PRN (22:46)
[2022-11-17 04:00] VITALS: BP 132/76; PULSE 92; RESP 16; TEMP 98.3; O2SAT 97
[2022-11-17] MEDS ORDERED: KETOROLAC 30 MG/ML VIAL ONE (04:29)
[2022-11-17] MEDS: ONDANSETRON 4 MG/2 ML VIAL IVP PRN (04:35)
[2022-11-17 08:00] VITALS: BP 106/53; PULSE 72; RESP 16; TEMP 97.8; O2SAT 97
== END 2022-11-17 13:07 | disposition home or self-care (01) ==
LOC: MDS 05:13 → MMU 06:41 → MTU 18:54 → MDS 11-17 13:07
PROVIDERS: ATTEND Obstetrics & Gynecology
DX: N83.202 Unspecified ovarian cyst, left side (principal); N80.9 Endometriosis, unspecified; E03.9 Hypothyroidism, unspecified; E53.8 Deficiency of other specified B group vitamins; J45.909 Unspecified asthma, uncomplicated; E55.9 Vitamin D deficiency, unspecified; K59.00 Constipation, unspecified; R10.2 Pelvic and perineal pain; N81.6 Rectocele; Z88.5 Allergy status to narcotic agent; Z91.040 Latex allergy status; Z79.899 Other long term (current) drug therapy
CPT/HCPCS: 36415; 58662; 80053; 82374; 85025; 85610; J0330; J0895; J1100; J1165; J1170; J1885; J2001; J2405; J2704; J2765; J3010; J3490; J7120

== ENCOUNTER 2023-03-25 11:01 | Emergency (ER) | payer OTHER ==
[~2023-03-25] VITALS: Ht 162.6 cm; Wt 86.6 kg
[2023-03-25 11:07] VITALS: BP 124/67; PULSE 98; RESP 20; TEMP 96.9; O2SAT 96
[2023-03-25 12:02] LABS: APPEARANCE,URINE CLEAR (CLEAR); BILIRUBIN,URINE NEGATIVE (NEGATIVE); BLOOD, URINE NEGATIVE (NEGATIVE); COLOR,URINE YELLOW (YELLOW); LEUKOCYTE ESTERASE ,URINE NEGATIVE (NEGATIVE); NITRITE, URINE NEGATIVE (NEGATIVE); PROTEIN,URINE NEGATIVE (NEGATIVE); UGLUCOSE NEGATIVE (NEGATIVE); UROBILINOGEN,URINE 0.2 EU/dL (0.2 - 1)
[2023-03-25 12:17] LABS: BASOPHILS % (AUTO) 0.6 % (0.0-2.0); EOSINOPHILS # (AUTO) 0.1 K/uL (0-0.4); EOSINOPHILS % (AUTO) 1.3 % (0.0-4.0); HEMATOCRIT 39.7 % (36-48); HEMOGLOBIN 13.5 g/dL (12.0-16.0); LYMPHOCYTES # (AUTO) 1.7 K/uL (2.5-16.5); LYMPHOCYTES % (AUTO) 24.1 % (20.5-51.1); MEAN CORPUSCULAR HEMOGLOBIN 30 pg (27-31); MEAN CORPUSCULAR HGB CONC 34 g/dL (33-37); MONOCYTES # (AUTO) 0.4 K/uL (0.8-1.0); MONOCYTES % (AUTO) 6.3 % (1.7-9.3); NEUTROPHILS # (AUTO) 4.7 K/uL (1.8-7.7); NEUTROPHILS % (AUTO) 67.7 % (42.2-75.2); PLATELET COUNT (AUTO) 280 K/uL (140-450); RED BLOOD CELL COUNT(AUTO) 4.51 MIL/uL (4.20-5.40); RED CELL DISTRIBUTION WIDTH 13.8 % (11.6-13.7)
[2023-03-25 12:19] LABS: ANION GAP 13.2 (8-16); CARBON DIOXIDE 26.8 mmol/L (21-32); CREATININE 0.9 mg/dL (0.6-1.3)
[2023-03-25 12:24] LABS: ALBUMIN 3.8 g/dL (3.4-5.0); BILIRUBIN,DIRECT 0.1 mg/dL (0.0-0.3); TOTAL BILIRUBIN 0.5 mg/dL (0.0-1.0); TOTAL PROTEIN, SERUM 8.2 g/dL (6.4-8.2)
[2023-03-25 13:53] VITALS: BP 122/69; PULSE 85; RESP 18; TEMP 97.4; O2SAT 96
== END 2023-03-25 13:53 | disposition home or self-care (01) ==
LOC: MED 11:01
DX: R10.32 Left lower quadrant pain (principal); E03.9 Hypothyroidism, unspecified; Z88.5 Allergy status to narcotic agent; Z91.040 Latex allergy status; Z79.899 Other long term (current) drug therapy
CPT/HCPCS: 36415; 74176; 76830; 80048; 80076; 81003; 81025; 82150; 83690; 84703; 85025; 93976; 99284; Q0092

== ENCOUNTER 2023-03-27 10:01 | Emergency (ER) | payer OTHER ==
[~2023-03-27] VITALS: Ht 162.6 cm; Wt 86.6 kg
[2023-03-27 10:09] VITALS: BP 117/71; PULSE 94; RESP 20; TEMP 97.7; O2SAT 96
[2023-03-27] MEDS ORDERED: ONDANSETRON 4 MG ODT PO ONE (11:25)
[2023-03-27 11:30] VITALS: BP 117/71; PULSE 94; RESP 20; TEMP 97.7; O2SAT 96
[2023-03-27 11:47] LABS: BASOPHILS % (AUTO) 0.3 % (0.0-2.0); EOSINOPHILS % (AUTO) 0.2 % (0.0-4.0); HEMATOCRIT 41.8 % (36-48); LYMPHOCYTES # (AUTO) 1.3 K/uL (2.5-16.5); LYMPHOCYTES % (AUTO) 11.4 % (20.5-51.1); MEAN CORPUSCULAR HEMOGLOBIN 30 pg (27-31); MEAN CORPUSCULAR HGB CONC 34 g/dL (33-37); MEAN CORPUSCULAR VOLUME 88.1 fL (80-94); MONOCYTES # (AUTO) 0.7 K/uL (0.8-1.0); MONOCYTES % (AUTO) 5.8 % (1.7-9.3); NEUTROPHILS # (AUTO) 9.5 K/uL (1.8-7.7); NEUTROPHILS % (AUTO) 82.3 % (42.2-75.2); PLATELET COUNT (AUTO) 319 K/uL (140-450); RED BLOOD CELL COUNT(AUTO) 4.75 MIL/uL (4.20-5.40); RED CELL DISTRIBUTION WIDTH 13.9 % (11.6-13.7); WHITE BLOOD COUNT (AUTO) 11.5 K/uL (4.8-10.8)
[2023-03-27 12:20] LABS: CALCIUM 9.2 mg/dL (8.5-10.1); CARBON DIOXIDE 28.1 mmol/L (21-32); POTASSIUM 4.1 mmol/L (3.5-5.1)
[2023-03-27 12:26] LABS: ALBUMIN 4.3 g/dL (3.4-5.0); BILIRUBIN,DIRECT 0.1 mg/dL (0.0-0.3); TOTAL BILIRUBIN 0.6 mg/dL (0.0-1.0); TOTAL PROTEIN, SERUM 9.3 g/dL (6.4-8.2)
[2023-03-27] MEDS ORDERED: ONDA-188 PO (13:19)
== END 2023-03-27 13:51 | disposition home or self-care (01) ==
LOC: MED 10:01
DX: R11.2 Nausea with vomiting, unspecified (principal); E03.9 Hypothyroidism, unspecified; Z79.899 Other long term (current) drug therapy; Z79.1 Long term (current) use of non-steroidal anti-inflammatories (NSAID); Z88.5 Allergy status to narcotic agent; Z91.040 Latex allergy status
CPT/HCPCS: 36415; 80048; 80076; 83690; 85025; 99283; Q0162

== ENCOUNTER 2023-07-07 21:41 | Emergency (ER) | payer OTHER ==
[~2023-07-07] VITALS: Ht 162.6 cm; Wt 81.6 kg
[~2023-07-07 21:41] MED LIST changes: +ONDA-188 PO
[2023-07-07 22:07] VITALS: BP 113/67; PULSE 69; RESP 18; TEMP 98; O2SAT 98
[2023-07-08] MEDS ORDERED: IBUP-2213 PO (17:20)
== END 2023-07-08 01:16 | disposition left against medical advice (07) ==
LOC: MED 21:41
DX: R10.30 Lower abdominal pain, unspecified (principal); R11.2 Nausea with vomiting, unspecified; R19.7 Diarrhea, unspecified; Z53.21 Procedure and treatment not carried out due to patient leaving prior to being seen by health care provider
CPT/HCPCS: 81002; 81025; 99281

== ENCOUNTER 2023-07-08 15:57 | Emergency (ER) | payer OTHER ==
[~2023-07-08] VITALS: Ht 154.9 cm; Wt 82.1 kg
[2023-07-08 16:32] VITALS: BP 119/74; PULSE 87; RESP 18; TEMP 98.1; O2SAT 99
[2023-07-08] MEDS ORDERED: IBUP-2213 PO (17:20)
[2023-07-08 17:23] VITALS: BP 120/72; PULSE 85; RESP 18; TEMP 98; O2SAT 98
== END 2023-07-08 17:23 | disposition home or self-care (01) ==
LOC: MED 15:57
DX: R10.13 Epigastric pain (principal); E03.9 Hypothyroidism, unspecified; Z88.5 Allergy status to narcotic agent; Z88.8 Allergy status to other drugs, medicaments and biological substances; Z79.899 Other long term (current) drug therapy
CPT/HCPCS: 81002; 81025; 99282

== ENCOUNTER 2023-08-26 10:47 | Emergency (ER) | payer OTHER ==
[~2023-08-26] VITALS: Ht 162.6 cm; Wt 81.2 kg
[~2023-08-26 10:47] MED LIST changes: +IBUP-2213 PO
[2023-08-26 10:57] VITALS: BP 119/61; PULSE 102; RESP 19; TEMP 97.3; O2SAT 98
[2023-08-26 15:31] VITALS: BP 119/61; PULSE 102; RESP 19; TEMP 97.3; O2SAT 98
== END 2023-08-26 15:30 | disposition home or self-care (01) ==
LOC: MED 10:47
DX: N64.4 Mastodynia (principal); M79.602 Pain in left arm; Z86.39 Personal history of other endocrine, nutritional and metabolic disease; Z79.1 Long term (current) use of non-steroidal anti-inflammatories (NSAID); Z79.899 Other long term (current) drug therapy; Z88.5 Allergy status to narcotic agent; Z91.040 Latex allergy status
CPT/HCPCS: 76641; 99284; Q0092

== ENCOUNTER 2023-12-05 19:39 | Emergency (ER) | payer OTHER ==
[~2023-12-05] VITALS: Ht 162.6 cm; Wt 82.1 kg
[2023-12-05 20:10] VITALS: BP 115/68; PULSE 81; RESP 18; TEMP 97; O2SAT 96
[2023-12-05] MEDS ORDERED: FLONAS NS (20:45)
[2023-12-05] MEDS ORDERED: SUD30 PO (20:45)
[2023-12-05] MEDS ORDERED: LORA10TA19 PO (20:45)
[2023-12-05 20:51] VITALS: BP 115/68; PULSE 81; RESP 18; TEMP 97; O2SAT 96
[2023-12-05 21:20] LABS: FLU A ANTIGEN negative (NEGATIVE); FLU B ANTIGEN NEGATIVE (NEGATIVE)
== END 2023-12-05 20:51 | disposition home or self-care (01) ==
LOC: MED 19:39
DX: J06.9 Acute upper respiratory infection, unspecified (principal); B97.89 Other viral agents as the cause of diseases classified elsewhere; Z20.822 Contact with and (suspected) exposure to COVID-19; J45.909 Unspecified asthma, uncomplicated; Z86.39 Personal history of other endocrine, nutritional and metabolic disease; Z79.899 Other long term (current) drug therapy; Z88.5 Allergy status to narcotic agent; Z91.040 Latex allergy status
CPT/HCPCS: 99283